=== PATIENT | female | born 1985 | race Caucasian/White ===

== ENCOUNTER 2016-09-21 22:04 | Emergency (ER) | payer SELFPAY ==
--- NOTE | 2016-09-21 23:07 | ED Physician Chart ---
Chief Complaint/HPI - Patient Information Date Seen:: 09/21/16 Time Seen:: 22:45 Chief Complaint:: abscess under L arm History of Present Illness:: 4 - 5 days increasing tenderness and now fluctuant boil under L arm. has had previously Allergies:: Allergies Allergy/AdvReac Type Severity Reaction Status Date / Time No Known Allergies Allergy Verified 03/26/16 15:18 Vitals:: Vital Signs - 8 hr 09/21/16 22:10 Temp 97.9 F HR 88 RR 19 BP 139/82 O2 Sat % 100 Review of Systems - Review of Systems General/Constitutional: No fever Skin: Skin lesions (boil, fluctuant abscess under L arm, L axilla) ENT: No earache, No sore throat Neck: No neck pain Cardio Vascular: No chest pain Pulmonary: No SOB G/U: No dysuria Neurological: No syncope Past Medical History - Past Medical History Past Medical History: Asthma/COPD (asthma by hx), Other (previous boil) Family History: None Social History: Non Smoker, No Alcohol Surgical History: other (previous I & D) Psychiatricy History: None Medication: None Family Medical History - Family Member Mother History Unknown: Yes Ethnicity: Non- Living Status: Still Living Hx Family Hypertension: Yes Hx Family COPD: Yes Physical Exam - Physical Examination General/Constitutional: Awake, Well-developed, well-nourished, Alert, No distress, GCS 15, Non-toxic appearing, Ambulatory Head: Atraumatic Eyes: Lids, conjuctiva normal, PERRL, EOMI Skin: Nl inspection Other Skin comments:: fluctuant abscess approx. 1 x 2 cm L axilla. No drainage. No surrounding erythema ENMT: External ears, nose nl Neck: Nontender, Full ROM w/o pain Respiratory: Nl effort/Exclusion, Clear to Auscultation, No Wheeze/Rhonchi/Rales Cardio Vascular: RRR, No murmur, gallop, rubs GI: Normal BS's : No CVA tenderness Extremities: No tenderness or effusion, Full ROM Neuro/Psych: Alert/oriented, Normal motor strength Misc: Normal back Assessment - Procedures Procedures:: Pt. given explanation of procedure and agreed. I & D axillary abscess Prep with betadyne anesthetize with 1% Lido without epi. Incision with 15 blade. Puss expressed, culture taken. Loculations broken up and packed. Dressed. ED Septic Shock - . Is Septic Shock (SBP<90, OR Lactate>4 mmol\L) present?: No - <6hrs of presentation: Vital Signs: Vital Signs - 8 hr 09/21/16 22:10 Temp 97.9 F HR 88 RR 19 BP 139/82 O2 Sat % 100 Reassessment (Disposition) - Reassessment Reassessment Condition:: Improved - Diagnosis Diagnosis:: Dx: Acute cutaneous abscess, Incised and drained. - Aftercare/Follow up Instructions Aftercare/Follow-Up Instructions:: Counseled pt & family regarding lab results/ diagnosis & need follow up Medication Prescribed:: Rx: Keflex 250 mg one po q6h. Disp. #40. No refill. - Patient Disposition Condition at Disposition:: Stable, Improved ED Discharge Plan - Patient Disposition Admit/Discharge/Transfer: PT DISCHARGED HOME Condition at Disposition: Improved
== END 2016-09-21 23:25 | disposition home or self-care (01) ==
LOC: ER 22:04
DX: L02.412 Cutaneous abscess of left axilla (principal); J45.909 Unspecified asthma, uncomplicated; J44.9 Chronic obstructive pulmonary disease, unspecified
CPT/HCPCS: 87070-90; 87075-90; 87205-90; J2001; Z7502; Z7610

== ENCOUNTER 2017-09-13 20:52 | Emergency (ER) | payer MEDICAID ==
--- NOTE | 2017-09-28 23:54 | ER Physician Documentation ---
DATE OF SERVICE: 09/13/2017 This is an ER physician documentation CHIEF COMPLAINT: Okay to book. HISTORY OF PRESENT ILLNESS: A 32-year-old female was brought by [facility] to Emergency Room for evaluation, if the patient was okay to book, the patient was 32 weeks without any medical complaint at that time. ALLERGIES: No known drug allergies. REVIEW OF SYSTEMS: GENERAL AND CONSTITUTIONAL: No fever. SKIN: No skin lesions. HEAD: No headache. EYES: No loss of vision. ENT: No earache. NECK: No neck pain. CARDIOVASCULAR: No chest pain. PULMONARY: No shortness of breath. GASTROINTESTINAL: No nausea. PSYCHIATRIC: No prior psychiatric history. PAST MEDICAL HISTORY: Unremarkable. SOCIAL HISTORY: Nonsmoker, drink, alcohol use, illicit drugs. PAST SURGICAL HISTORY: . PHYSICAL EXAMINATION: GENERAL AND CONSTITUTIONAL: Awake. HEENT: Head is atraumatic. Eyes: Pupils equal, round and reactive to light. NECK: No nuchal rigidity. RESPIRATORY: Clear to auscultation. CARDIOVASCULAR: Regular rate and rhythm. No murmur, gallop, rubs. Normal S1, S2. GASTROINTESTINAL: No tenderness, rebounding or guarding. Appropriate for a 32 weeks' gestation. EXTREMITIES: Moves all extremities with normal strength. GENERAL ASSESSMENT: A 32 weeks gestation. PLAN: The patient was cleared to be booked. JOB# [id number]
== END 2017-09-13 22:10 | disposition still patient (30) ==
LOC: ER 20:52
DX: O26.93 Pregnancy related conditions, unspecified, third trimester (principal)
CPT/HCPCS: Z7502